=== PATIENT | male | born 1975 | race Hispanic/Latino ===

== ENCOUNTER 2021-12-27 13:52 | Emergency (ER) | payer SELFPAY ==
[2021-12-27] MEDS ORDERED: lisinopriL 10 MG TAB ONE (14:12)
[2021-12-27 14:39] LABS: Urine Blood Negative (Negative); Urine Glucose Trace (Negative); Urine Protein 1+ (Negative); Urine Specific Gravity >=1.030 (1.005-1.030)
[2021-12-27 14:46] LABS: Absolute Lymphocytes (CBC) 1.3 K/uL (0.7-4.9); Hematocrit 45.7 % (39.6-49.0); Lymphocytes % 20.4 % (15.3-44.8); MCV 86.3 fL (80-100); MPV 10.1 fL (7.6-11.3)
[2021-12-27 15:07] LABS: ALT/SGPT 23 U/L (12-78); AST/SGOT 8 U/L (15-37); Albumin 4.1 g/dL (3.4-5.0); Alkaline Phosphatase 52 U/L (45-117); BUN Blood Urea Nitrogen 15 mg/dL (7-18); Bicarbonate 24 mmol/L (21-32); Bilirubin Total 0.7 mg/dL (0.2-1.0); Glomerular Filtration Rate 92 ml/min (=/>90); Glucose Level 151 mg/dL (74-106); Potassium 3.9 mmol/L (3.5-5.1); Protein, Total 7.4 g/dL (6.4-8.2); Sodium Level 136 mmol/L (136-145)
[2021-12-27 15:16] LABS: Barbiturates NEGATIVE (NEGATIVE); Benzodiazepines NEGATIVE (NEGATIVE); Cocaine NEGATIVE (NEGATIVE); METHAMPHETAM NEGATIVE (NEGATIVE); Methadone NEGATIVE (NEGATIVE); Opiates NEGATIVE (NEGATIVE); Phencyclidine NEGATIVE (NEGATIVE); THC Cannibis POSITIVE (NEGATIVE)
--- NOTE | 2021-12-27 15:20 | RAD REPORT ---
EXAM DESCRIPTION: RAD - Chest Single View - 12/27/2021 3:09 pm CLINICAL HISTORY: med clearance COMPARISON: No comparisons FINDINGS: Lines: None. Lungs: No evidence of edema or pneumonia. No evidence of TB. Pleural: No significant pleural effusions or pneumothorax. Cardiac: The heart size is within normal limits. Mediastinum: Within normal limits. Bones: No acute fractures. Other: None IMPRESSION: No acute cardiopulmonary disease.
[2021-12-27 16:40] LABS: SARS-CoV-2 Antigen Rapid Res Negative (Negative)
--- NOTE | 2021-12-27 21:20 | EDPHYS ---
Physician Documentation [facility] Name: Elio Orozco Jr Age: 46 yrs Sex: Male : 1975 Arrival Date: 12/27/2021 Time: 13:56 Bed 7 Private MD: ED Physician Jabier Addison HPI: 12/27 14:50 This 46 yrs old Male presents to ER via EMS with complaints of Depression, rt substance abuse. 14:50 The patient presents to the emergency department with depression. Onset: The rt symptoms/episode began/occurred gradually. Associated signs and symptoms: The patient has no apparent associated signs or symptoms. Severity of symptoms: At their worst the symptoms were mild. Patient with history of hypertension, depression, diabetes presents to the ED after being out of his medications for several months. Patient [place] from [place]. The patient reports a history of substance abuse, drinking over a 12 pack of beer a day as well as smoking marijuana to help with his symptoms. Patient has not used any substances for the past few days. He reports depression but denies any overt suicidality. Denies homicidal ideation at this time or hallucinations. Patient states that he wishes to "get back on track" and wishes to go to psychiatric hospital as well as rehab. He denies any physical complaints at this time. Symptoms are mild in severity, no other aggravating or alleviating factors.. Historical: - Allergies: 14:00 No Known Allergies; kc6 - PMHx: 14:00 Hypertensive disorder; PTSD; Diabetes mellitus; Bipolar disorder; kc6 - PSHx: 14:00 None; kc6 - Immunization history:: Client reports receiving the 2nd dose of the Covid vaccine, Flu vaccine is not up to date. - Social history:: Smoking status: Patient reports the use of cigarette tobacco products, unknown amount Patient uses alcohol, on a daily basis. stated his last drink was Sunday12/24/21. ROS: 14:50 Constitutional: Negative for fever, chills, and weight loss, Eyes: Negative for injury, rt pain, redness, and discharge, ENT: Negative for injury, pain, and discharge, Neck: Negative for injury, pain, and swelling, Cardiovascular: Negative for chest pain, palpitations, and edema, Respiratory: Negative for shortness of breath, cough, wheezing, and pleuritic chest pain, Abdomen/GI: Negative for abdominal pain, nausea, vomiting, diarrhea, and constipation, MS/Extremity: Negative for injury and deformity, Skin: Negative for injury, rash, and discoloration, Neuro: Negative for headache, weakness, numbness, tingling, and seizure. 14:50 Psych: Positive for depression, Negative for suicidal ideation. Exam: 14:50 Constitutional: This is a well developed, well nourished patient who is awake, alert, rt and in no acute distress. Head/Face: Normocephalic, atraumatic. Eyes: Pupils equal round and reactive to light, extra-ocular motions intact. Lids and lashes normal. Conjunctiva and sclera are non-icteric and not injected. Cornea within normal limits. Periorbital areas with no swelling, redness, or edema. ENT: Nares patent. No nasal discharge, no septal abnormalities noted. Tympanic membranes are normal and external auditory canals are clear. Oropharynx with no redness, swelling, or masses, exudates, or evidence of obstruction, uvula midline. Mucous membranes moist. Neck: Trachea midline, no thyromegaly or masses palpated, and no cervical lymphadenopathy. Supple, full range of motion without nuchal rigidity, or vertebral point tenderness. No Meningismus. Chest/axilla: Normal chest wall appearance and motion. Nontender with no deformity. No lesions are appreciated. Cardiovascular: Regular rate and rhythm with a normal S1 and S2. No gallops, murmurs, or rubs. Normal PMI, no JVD. No pulse deficits. Respiratory: Lungs have equal breath sounds bilaterally, clear to auscultation and percussion. No rales, rhonchi or wheezes noted. No increased work of breathing, no retractions or nasal flaring. Abdomen/GI: Soft, non-tender, with normal bowel sounds. No distension or tympany. No guarding or rebound. No evidence of tenderness throughout. Skin: Warm, dry with normal turgor. Normal color with no rashes, no lesions, and no evidence of cellulitis. MS/ Extremity: Pulses equal, no cyanosis. Neurovascular intact. Full, normal range of motion. Neuro: Awake and alert, GCS 15, oriented to person, place, time, and situation. Cranial nerves II-XII grossly intact. Motor strength 5/5 in all extremities. Sensory grossly intact. Cerebellar exam normal. Normal gait. Psych: Awake, alert, with orientation to person, place and time. Behavior, mood, and affect are within normal limits. 14:50 ECG was reviewed by the Attending Physician. rt Vital Signs: 13:56 BP 150 / 108; Pulse 96; Resp 18 S; Pulse Ox 95% on R/A; Weight 95.25 kg (R); Height 5 kc6 ft. 11 in. (180.34 cm) (R); Pain 0/10; 14:46 BP 142 / 111; Pulse 95; Resp 18 S; Pulse Ox 95% on R/A; Pain 0/10; kc6 15:24 BP 140 / 106; Pulse 90; Resp 18 S; Pulse Ox 96% on R/A; Pain 0/10; kc6 16:15 BP 131 / 103; Pulse 87; Resp 18 S; Pulse Ox 97% on R/A; Pain 0/10; kc6 17:15 BP 137 / 103; Pulse 94; Resp 18 S; Pulse Ox 97% on R/A; Pain 0/10; kc6 18:15 BP 129 / 102; Pulse 96; Resp 17 S; Pulse Ox 94% on R/A; Pain 0/10; kc6 19:00 BP 134 / 98; Pulse 90; Resp 18 S; Pulse Ox 98% on R/A; Pain 0/10; kc6 20:12 BP 130 / 93; Pulse 94; Resp 17; Pulse Ox 96% on R/A; ll3 13:56 Body Mass Index 29.29 (95.25 kg, 180.34 cm) kc6 MDM: 14:00 Patient medically screened. rt 21:17 Differential diagnosis: drug withdrawal. acute psychotic break, depression, psychosis ginette secondary to non-compliance. Data reviewed: vital signs, nurses notes, lab test result(s), EKG. Data interpreted: quality assurance monitor chassis: rate is 94 beats/min, rhythm is regular. Test interpretation: by ED physician or midlevel provider: ECG, plain radiologic studies. Counseling: I had a detailed discussion with the patient and/or guardian regarding: the historical points, exam findings, and any diagnostic results supporting the discharge/admit diagnosis, lab results, radiology results. 12/27 14:08 Order name: CBC with Diff; Complete Time: 15: rt 12/27 14:08 Order name: CMP; Complete Time: : rt 12/27 14:08 Order name: Alcohol Level; Complete Time: 15:22 rt 12/27 14:08 Order name: Acetaminophen; Complete Time: 15:22 rt 12/27 14:08 Order name: Salicylate; Complete Time: 15:47 rt 12/27 14:08 Order name: UDS; Complete Time: 15:22 rt 12/27 14:08 Order name: Chest Single View XRAY; Complete Time: 15:22 rt 12/27 14:08 Order name: EKG; Complete Time: 14:09 rt 12/27 14:08 Order name: EKG - Nurse/Tech; Complete Time: 14:32 rt 12/27 14:39 Order name: Urine Dipstick-Ancillary; Complete Time: 15:22 EDMS 12/27 14:41 Order name: Urine Dipstick-Ancillary EDMS 12/27 16:02 Order name: SARS-COV-2 Antigen Rapid; Complete Time: 17:25 bd EC:50 Rate is 94 beats/min. Rhythm is regular, Normal Sinus Rhythm with No ectopy. QRS [place] rt is Normal. [place] interval is normal. QRS interval is normal. QT interval is normal. No Q waves. T waves are Normal. No ST changes noted. Clinical impression: Normal ECG. Interpreted by me. Administered Medications: 14:32 Drug: Lisinopril 10 mg Route: PO; kc6 15:32 Follow up: Response: No adverse reaction; Blood pressure is lowered kc6 Disposition Summary: 12/27/21 21:20 Discharge Ordered Location: Home ginette Problem: new ginette Symptoms: have improved ginette Condition: Stable ginette Diagnosis - Adjustment disorder with mixed anxiety and depressed mood ginette - Other psychoactive substance use, unspecified ginette Followup: ginette - With: Private Physician - When: 2 - 3 days - Reason: Recheck today's complaints, Continuance of care, Re-evaluation by your physician Followup: ginette - With: Adolfo Castrejon MD - When: 2 - 3 days - Reason: Recheck today's complaints, Re-evaluation by your physician Discharge Instructions: - Discharge Summary Sheet ginette - Substance Use Disorder ginette - Mixed Bipolar Disorder ginette - Supporting Someone With Bipolar Disorder ginette - Managing Depression, Adult ginette - Substance Use Disorder and Mental Illness ginette Forms: - Medication Reconciliation Form ginette - Thank You Letter ginette - Antibiotic Education ginette - Prescription Opioid Use ginette Signatures: Dispatcher [employer] Jabier Lauren MD MD cha Campbell, Kaitlyn, RN RN kc6 Javier Maradiaga MD MD rt
--- NOTE | 2021-12-27 21:20 | ER ---
Nurse's Notes [facility] Name: Elio Orozco Jr Age: 46 yrs Sex: Male : 1975 Arrival Date: 12/27/2021 Time: 13:56 Bed 7 Private MD: Diagnosis: Adjustment disorder with mixed anxiety and depressed mood;Other psychoactive substance use, unspecified Presentation: 12/27 13:56 Chief complaint: EMS states: client called because he was just not feeling in the right kc6 headspace, and is wanting to get some help. client stated he has been sober from ETOH for two days. client denies SI or HI, stated, "I'm depressed but happy at the same time.". Coronavirus screen: Vaccine status: Patient reports receiving the 2nd dose of the covid vaccine. At this time, the client does not indicate any symptoms associated with coronavirus-19. Ebola Screen: No symptoms or risks identified at this time. Initial Sepsis Screen: Does the patient meet any 2 criteria? No. Patient's initial sepsis screen is negative. Does the patient have a suspected source of infection? No. Patient's initial sepsis screen is negative. Risk Assessment: Do you want to hurt yourself or someone else? Patient reports no desire to harm self or others. Onset of symptoms was December 27, 2021. 13:56 Method Of Arrival: EMS: [place] [id number] 13:56 Acuity: CHAD 3 kc6 Triage Assessment: 13:56 General: Appears in no apparent distress. comfortable, Behavior is calm, cooperative, kc6 appropriate for age. Pain: Denies pain. EENT: No signs and/or symptoms were reported regarding the EENT system. Neuro: Bucio Agitation-Sedation Scale (RASS): 0 - Alert and Calm Level of Consciousness is awake, alert, obeys commands, Oriented to person, place, time, situation, Appropriate for age. Cardiovascular: Heart tones S1 S2 present Capillary refill < 3 seconds. Respiratory: Airway is patent Trachea midline Respiratory effort is even, unlabored, Respiratory pattern is regular, symmetrical, Breath sounds are clear bilaterally. GI: No signs and/or symptoms were reported involving the gastrointestinal system. : No signs and/or symptoms were reported regarding the genitourinary system. Derm: No signs and/or symptoms reported regarding the dermatologic system. Skin is intact, Skin is pink, warm \\T\\ dry. Musculoskeletal: No signs and/or symptoms reported regarding the musculoskeletal system. Circulation, motion, and sensation intact. Capillary refill < 3 seconds, Range of motion: intact in all extremities. Historical: - Allergies: 14:00 No Known Allergies; kc6 - PMHx: 14:00 Hypertensive disorder; PTSD; Diabetes mellitus; Bipolar disorder; kc6 - PSHx: 14:00 None; kc6 - Immunization history:: Client reports receiving the 2nd dose of the Covid vaccine, Flu vaccine is not up to date. - Social history:: Smoking status: Patient reports the use of cigarette tobacco products, unknown amount Patient uses alcohol, on a daily basis. stated his last drink was Sunday12/24/21. Screenin:08 Abuse screen: Denies threats or abuse. Denies injuries from another. Nutritional kc screening: No deficits noted. Tuberculosis screening: No symptoms or risk factors identified. Fall Risk No fall in past 12 months (0 pts). No secondary diagnosis (0 pts). No IV (0 pts). Ambulatory Aid- None/Bed Rest/Nurse Assist (0 pts). Gait- Normal/Bed Rest/Wheelchair (0 pts) Mental Status- Oriented to own ability (0 pts). Total Santacruz Fall Scale indicates No Risk (0-24 pts). Assessment: 14:09 Reassessment: please see triage assessment. kc6 15:09 Reassessment: Patient appears in no apparent distress at this time. No changes from kc6 previously documented assessment. Patient and/or family updated on plan of care and expected duration. Pain level reassessed. Patient is alert, oriented x 3, equal unlabored respirations, skin warm/dry/pink. Patient denies pain at this time. 16:09 Reassessment: Patient appears in no apparent distress at this time. No changes from kc6 previously documented assessment. Patient and/or family updated on plan of care and expected duration. Pain level reassessed. Patient is alert, oriented x 3, equal unlabored respirations, skin warm/dry/pink. Patient denies pain at this time. 17:17 Reassessment: Patient appears in no apparent distress at this time. No changes from kc6 previously documented assessment. Patient and/or family updated on plan of care and expected duration. Pain level reassessed. Patient is alert, oriented x 3, equal unlabored respirations, skin warm/dry/pink. [place] at bedside. Patient denies pain at this time. 18:17 Reassessment: Patient appears in no apparent distress at this time. No changes from 6 previously documented assessment. Patient and/or family updated on plan of care and expected duration. Pain level reassessed. Patient is alert, oriented x 3, equal unlabored respirations, skin warm/dry/pink. Patient denies pain at this time. 19:00 Reassessment: Patient appears in no apparent distress at this time. No changes from kc6 previously documented assessment. Patient and/or family updated on plan of care and expected duration. Pain level reassessed. Patient is alert, oriented x 3, equal unlabored respirations, skin warm/dry/pink. 20:23 Reassessment: Patient and/or family updated on plan of care and expected duration. Pain vc1 level reassessed. Patient is alert, oriented x 3, equal unlabored respirations, skin warm/dry/pink. 21:25 Reassessment: Pt refuses to sign discharge packet, states if he wanted resources he vc1 would just look them up. Vital Signs: 13:56 BP 150 / 108; Pulse 96; Resp 18 S; Pulse Ox 95% on R/A; Weight 95.25 kg (R); Height 5 kc6 ft. 11 in. (180.34 cm) (R); Pain 0/10; 14:46 BP 142 / 111; Pulse 95; Resp 18 S; Pulse Ox 95% on R/A; Pain 0/10; kc6 15:24 BP 140 / 106; Pulse 90; Resp 18 S; Pulse Ox 96% on R/A; Pain 0/10; kc6 16:15 BP 131 / 103; Pulse 87; Resp 18 S; Pulse Ox 97% on R/A; Pain 0/10; kc6 17:15 BP 137 / 103; Pulse 94; Resp 18 S; Pulse Ox 97% on R/A; Pain 0/10; kc6 18:15 BP 129 / 102; Pulse 96; Resp 17 S; Pulse Ox 94% on R/A; Pain 0/10; kc6 19:00 BP 134 / 98; Pulse 90; Resp 18 S; Pulse Ox 98% on R/A; Pain 0/10; kc6 20:12 BP 130 / 93; Pulse 94; Resp 17; Pulse Ox 96% on R/A; ll3 13:56 Body Mass Index 29.29 (95.25 kg, 180.34 cm) kc6 ED Course: 13:56 Patient arrived in ED. kc6 13:56 Rina Bernstein, RN is Primary Nurse. kc6 13:58 Javier Maradiaga MD is Attending Physician. rt 14:00 Triage completed. kc6 14:32 Acetaminophen Sent. kc6 14:32 Salicylate Sent. kc6 14:32 Alcohol Level Sent. kc6 14:32 CMP Sent. kc6 14:32 CBC with Diff Sent. kc6 14:32 Inserted saline lock: 20 gauge in right antecubital area, using aseptic technique. kc6 Blood collected. 14:40 UDS Sent. kc6 15:10 Chest Single View XRAY In Process Unspecified. EDMS 15:23 Patient has correct armband on for positive identification. Placed in gown. Bed in low kc6 position. Call light in reach. Side rails up X 1. Door closed. Noise minimized. Lights dimmed. Warm blanket given. Pillow given. 15:25 No provider procedures requiring assistance completed. kc6 15:25 Arm band placed on. kc6 15:47 Urine Dipstick-Ancillary Sent. kc6 16:12 notifited [facility] to send screener to evaluate pt. bd 16:15 SARS-COV-2 Antigen Rapid Sent. kc6 17:52 faxed chart to [facility], [facility] and [facility]. 21:11 Attending Physician role handed off by Javier Maradiaga MD ginette 21:11 Jabier Addison MD is Attending Physician. ginette 21:19 Adolfo Castrejon MD is Referral Physician. ginette 21:26 IV discontinued, intact, bleeding controlled, No redness/swelling at site. Pressure vc1 dressing applied. Administered Medications: 14:32 Drug: Lisinopril 10 mg Route: PO; kc6 15:32 Follow up: Response: No adverse reaction; Blood pressure is lowered kc6 Medication: 15:25 VIS not applicable for this client. kc6 Outcome: 21:20 Discharge ordered by . ginette 21:26 Discharged to home ambulatory. vc1 21:26 Condition: good 21:26 Discharge instructions given to patient, Instructed on discharge instructions, follow up and referral plans. Demonstrated understanding of instructions, follow-up care. 21:27 Patient left the ED. vc1 Signatures: Dispatcher [employer] EDMS Abbey Hewitt Corey, MD MD cha Loubet, Lynsea, RN RN ll3 Ofe Oakes RN RN vc1 Rina Bernstein RN RN kc6 Javier Maradiaga MD MD rt Corrections: (The following items were deleted from the chart) 14:13 13:56 Acuity: CHAD 2 kc6 kc6 14:46 14:44 General: Appears in no apparent distress. comfortable, Behavior is calm, kc6 cooperative, appropriate for age, kc6 :46 14:44 Pain: Denies pain. kc6 kc6 14:46 14:44 EENT: No signs and/or symptoms were reported regarding the EENT system. kc6 kc6 14:46 14:44 Neuro: Bucio Agitation-Sedation Scale (RASS): 0 - Alert and Calm Level of kc6 Consciousness is awake, alert, obeys commands, Oriented to person, place, time, situation, Appropriate for age kc6 14:46 14:44 Cardiovascular: Heart tones S1 S2 present Capillary refill < 3 seconds kc6 kc6 14:46 14:44 Respiratory: Airway is patent Trachea midline Respiratory effort is even, kc6 unlabored, Respiratory pattern is regular, symmetrical, Breath sounds are clear bilaterally. kc6 14:46 14:44 GI: No signs and/or symptoms were reported involving the gastrointestinal system. kc6 kc6 14:46 14:44 : No signs and/or symptoms were reported regarding the genitourinary system. kc6kc6 14:46 14:44 Derm: No signs and/or symptoms reported regarding the dermatologic system. Skin kc6 is intact, Skin is pink, warm \\T\\ dry. kc6 14:46 14:44 Musculoskeletal: No signs and/or symptoms reported regarding the musculoskeletal kc6 system. Circulation, motion, and sensation intact. Capillary refill < 3 seconds, Range of motion: intact in all extremities, kc6 14:46 14:44 Neuro: kc6 kc6
[2021-12-27 21:41] VITALS: BP 130/93; O2SAT 96
--- NOTE | 2021-12-28 11:36 | EKG ---
Test Date: 2021-12-27 Test Time: 14:21:54 Plug Stitcher: SATISH MEASUREMENT RESULTS: Intervals: Rate: 94 [place]: 134 QRSD: 78 QT: 340 QTc: 425 [place]: P: 62 [place]: 134 QRS: 67 T: 125 INTERPRETIVE STATEMENTS: Normal sinus rhythm Nonspecific T wave abnormality Abnormal ECG No previous ECG available for comparison Electronically Signed On 12-28-21 11:34:37 EVENT SPECIALIST PRODUCT DEMONSTRATOR by Wyatt Powers
== END 2021-12-27 21:27 | disposition home or self-care (01) ==
LOC: ER 13:52
DX: F43.23 Adjustment disorder with mixed anxiety and depressed mood (principal); F19.90 Other psychoactive substance use, unspecified, uncomplicated
CPT/HCPCS: 36415; 71045; 80053; 80307; 80320; 80329; 81003; 85025; 87811; 93005; 99284

== ENCOUNTER 2021-12-28 05:23 | Emergency (ER) | payer SELFPAY ==
--- NOTE | 2021-12-28 06:17 | EDPHYS ---
Physician Documentation [facility] Name: Elio Orozco Jr Age: 46 yrs Sex: Male : 1975 Arrival Date: 12/28/2021 Time: 05:25 Bed 17 Private MD: ED Physician Isaias Medrano HPI: 12/28 06:08 This 46 yrs old Male presents to ER via Unassigned with complaints of Suicidal ginette Ideation. 06:08 The patient presents to the emergency department with anxiety, depression, a history of ginette substance abuse, Type: beer, methamphetamines, suicide ideation. Onset: The symptoms/episode began/occurred 2 week(s) ago. Past psychiatric history: Prior diagnosis: bipolar disorder, depression, the patient has had a prior suicide gesture, where the patient took pills/meds, the patient does not have a previous inpatient psychiatric history. Associated signs and symptoms: Pertinent positives; anxiety, depression, substance abuse, suicide ideation. Severity of symptoms: At their worst the symptoms were moderate in the emergency department the symptoms are unchanged. The patient has experienced similar episodes in the past, several times. Historical: - Allergies: 08:57 No Known Allergies; jd3 - PMHx: 06:10 Bipolar disorder; PTSD; Hypertensive disorder; ginette - Immunization history:: Adult Immunizations not up to date. - Social history:: Smoking status: Patient reports the use of cigarette tobacco products. - Family history:: not pertinent. - Hospitalizations: : No recent hospitalization is reported. ROS: 06:10 Constitutional: Negative for fever, chills, and weight loss, Eyes: Negative for injury, ginette pain, redness, and discharge, ENT: Negative for injury, pain, and discharge, Neck: Negative for injury, pain, and swelling, Cardiovascular: Negative for chest pain, palpitations, and edema, Respiratory: Negative for shortness of breath, cough, wheezing, and pleuritic chest pain, Abdomen/GI: Negative for abdominal pain, nausea, vomiting, diarrhea, and constipation, Back: Negative for injury and pain, : Negative for injury, bleeding, discharge, and swelling, MS/Extremity: Negative for injury and deformity, Skin: Negative for injury, rash, and discoloration, Neuro: Negative for headache, weakness, numbness, tingling, and seizure, Allergy/Immunology: Negative for hives, rash, and allergies, Endocrine: Negative for neck swelling, polydipsia, polyuria, polyphagia, and marked weight changes, Hematologic/Lymphatic: Negative for swollen nodes, abnormal bleeding, and unusual bruising. 06:10 Psych: Positive for anxiety, depression, suicidal ideation. Exam: 06:10 Constitutional: This is a well developed, well nourished patient who is awake, alert, ginette and in no acute distress. Head/Face: Normocephalic, atraumatic. Eyes: Pupils equal round and reactive to light, extra-ocular motions intact. Lids and lashes normal. Conjunctiva and sclera are non-icteric and not injected. Cornea within normal limits. Periorbital areas with no swelling, redness, or edema. ENT: Nares patent. No nasal discharge, no septal abnormalities noted. Tympanic membranes are normal and external auditory canals are clear. Oropharynx with no redness, swelling, or masses, exudates, or evidence of obstruction, uvula midline. Mucous membranes moist. Neck: Trachea midline, no thyromegaly or masses palpated, and no cervical lymphadenopathy. Supple, full range of motion without nuchal rigidity, or vertebral point tenderness. No Meningismus. Chest/axilla: Normal chest wall appearance and motion. Nontender with no deformity. No lesions are appreciated. Cardiovascular: Regular rate and rhythm with a normal S1 and S2. No gallops, murmurs, or rubs. Normal PMI, no JVD. No pulse deficits. Respiratory: Lungs have equal breath sounds bilaterally, clear to auscultation and percussion. No rales, rhonchi or wheezes noted. No increased work of breathing, no retractions or nasal flaring. Abdomen/GI: Soft, non-tender, with normal bowel sounds. No distension or tympany. No guarding or rebound. No evidence of tenderness throughout. Back: No spinal tenderness. No costovertebral tenderness. Full range of motion. Male : Normal genitalia with no discharge or lesions. Skin: Warm, dry with normal turgor. Normal color with no rashes, no lesions, and no evidence of cellulitis. MS/ Extremity: Pulses equal, no cyanosis. Neurovascular intact. Full, normal range of motion. Psych: Awake, alert, with orientation to person, place and time. Behavior, mood, and affect are within normal limits. 06:10 ECG was reviewed by the Attending Physician. 06:10 Neuro: Orientation: is normal, appropriate for stated age, no acute changes, Mentation: is normal, appropriate for stated age, no acute changes, Memory: is normal, appropriate for stated age, no acute changes, Cranial nerves: grossly normal, is grossly normal based on the patient's age, no acute changes, Cerebellar function: is grossly normal, is grossly normal based on the patient's age, no acute changes, Motor: is normal, is grossly normal based on the patient's age, Sensation: is normal, no obvious gross deficits, appropriate no acute changes, Gait: not applicable Deep tendon reflexes are 2+ (normal) in the bilateral brachioradialis, bicep, tricep and patellar and Achilles tendons, Babinski testing is normal, seizure activity, is not displayed by the patient. Vital Signs: 06:40 BP 109 / 92; Pulse 98; Resp 19; Temp 98(O); Pulse Ox 98% on R/A; kd3 12/29 05:43 BP 117 / 82; Pulse 89; Resp 15; Temp 98.1(O); Pulse Ox 100% on R/A; Pain 0/10; ke1 08:23 BP 135 / 97; Pulse 84; Resp 16; Temp 98.2; Pulse Ox 95% on R/A; Pain 0/10; ll1 20:16 BP 127 / 89; Pulse 84; Resp 18; Temp 98.4; Pulse Ox 99% on R/A; as6 12/30 08:00 BP 122 / 78; Pulse 82; Resp 16; Temp 97.4(O); Pulse Ox 99% on R/A; Pain 0/10; ko1 12:32 BP 151 / 98; Pulse 90; Resp 18; Pulse Ox 94% on R/A; ko1 12/31 05:07 BP 142 / 99; Pulse 65; Resp 16 S; Temp 97.9(O); Pulse Ox 99% on R/A; ha1 08:00 BP 131 / 91; Pulse 86; Resp 16; Temp 98; Pulse Ox 99% ; bp 19:20 BP 138 / 94; Pulse 80; Resp 16 S; Temp 97.9; Pulse Ox 99% on R/A; Pain 0/10; ha1 01/01 06:49 BP 129 / 92; Pulse 84; Resp 16; Temp 98.3; Pulse Ox 98% ; ds4 12:09 BP 125 / 78; Pulse 87; Resp 16; Pulse Ox 99% ; bp 01/02 05:17 BP 137 / 97; Pulse 83; Resp 17; Temp 98.5; Pulse Ox 98% on R/A; vc1 MDM: 12/28 05:28 Patient medically screened. ginette 06:13 Differential diagnosis: drug withdrawal. acute psychotic break, depression, psychosis ginette secondary to non-compliance. Data reviewed: vital signs, nurses notes, lab test result(s), EKG. Data interpreted: bark press operator: rate is 91 beats/min, rhythm is regular, Pulse oximetry: on room air is 100 %. Test interpretation: by ED physician or midlevel provider: ECG, plain radiologic studies. Counseling: I had a detailed discussion with the patient and/or guardian regarding: the historical points, exam findings, and any diagnostic results supporting the discharge/admit diagnosis, lab results, radiology results, the need to transfer to another facility, for higher level of care, [facility] does not immediately have the required specialist. 12/29 06:34 ED course: Pt has been sleeping comfortably, not requiring sedation, awaiting transfer rn for suicidal ideations. . 17:09 ED course: Patient alert, cooperative, in NAD at this time. Patient currently is ms3 pending transfer. Patient updated on his transfer status.. 12/31 12:00 ED course: Patient remains in stable condition without complaints. Patient is ms3 cooperative, polite. Patient aware of pending transfer. All questions were answered. Zyprexa ordered this AM. Will continue to attempt to transfer. . 01/01 11:44 ED course: Patient improved at this time. Patient states the Zyprexa has helped him. ms3 Patient does not have suicidal ideations/ plan at this time. Patient is concerned he will be discharged to the streets. Will consult case management to help facilitate discharge. Patient states he will also call people from his AA program to possibly find a place to stay.. 01/02 07:14 ED course: On evaluation of patient this morning patient remains without suicidal ms3 ideation, without suicidal intent, without homicidal ideation or intent, or hallucinations. Patient states he feels improved at this time. Patient has plans to go to his family in [place]. Discussed necessity to fill Zyprexa prescription with patient patient understands and agrees with plan. All questions were answered. Return precautions discussed include worsening symptoms, feelings of worthlessness, suicidal ideation, or any other concerns. 12/28 05:28 Order name: Acetaminophen; Complete Time: 06:32 [facility] 12/28 05:28 Order name: Basic Metabolic Panel; Complete Time: 06:32 [facility] 12/28 05:28 Order name: CBC with Diff; Complete Time: 06:59 [facility] 12/28 05:28 Order name: ETOH Level; Complete Time: 06:59 [facility] 12/28 05:28 Order name: Hepatic Function; Complete Time: 06:32 [facility] 12/28 05:28 Order name: PT-INR; Complete Time: 06:59 [facility] 12/28 05:28 Order name: Ptt, Activated; Complete Time: 06:59 [facility] 12/28 05:28 Order name: Salicylate; Complete Time: 06:32 [facility] 12/28 05:28 Order name: Urine Drug Screen; Complete Time: 06:32 [facility] 12/28 06:53 Order name: Urine Dipstick-Ancillary; Complete Time: 06:59 [facility] 12/29 17:13 Order name: SARS RAPID; Complete Time: 09:33 ms3 12/28 05:28 Order name: EKG; Complete Time: 05:29 [facility] 12/28 07:07 Order name: Diet Finger Food; Complete Time: 07:08 [facility] 12/28 10:56 Order name: Diet Finger Food; Complete Time: 10:56 [facility] 12/28 14:47 Order name: Diet Finger Food; Complete Time: 14:48 [facility] 12/29 07:20 Order name: Diet Finger Food; Complete Time: 07:21 kj1 12/30 10:18 Order name: Diet Finger Food; Complete Time: 10:19 ko1 12/31 07:10 Order name: Diet Finger Food; Complete Time: 07:10 ha1 12/31 10:56 Order name: Diet Finger Food; Complete Time: 10:57 bp 12/31 15:11 Order name: Diet Finger Food; Complete Time: 15:11 01/01 07:03 Order name: Diet Finger Food; Complete Time: 07:04 ha1 01/01 10:16 Order name: Diet Finger Food; Complete Time: 10:16 01/01 11:49 Order name: Social Service Consult EDMS 01/01 14:16 Order name: Diet Regular; Complete Time: 14:17 bp 12/28 05:28 Order name: EKG - Nurse/Tech; Complete Time: 06:25 [facility] 12/28 05:28 Order name: IV Saline Lock; Complete Time: 06:40 [facility] 12/28 05:28 Order name: Labs collected and sent; Complete Time: 06:40 [facility] 12/28 05:28 Order name: Suicide Precautions; Complete Time: 06:40 [facility] 12/28 05:28 Order name: Suicide Screening ([place]); Complete Time: 06:41 [facility] 12/28 05:28 Order name: Urine Dipstick-Ancillary (obtain specimen); Complete Time: 07:02 [facility] 01/02 07:08 Order name: Diet Finger Food; Complete Time: 07:08 ds4 EC/23 06:10 Rate is 91 beats/min. Rhythm is regular. QRS [place] is Normal. [place] interval is normal. QRS ginette interval is normal. QT interval is normal. T waves are Normal. No ST changes noted. Clinical impression: NSR w/ Non-specific ST/T Changes and No evidence of ischemia. Interpreted by me. Reviewed by me. Administered Medications: 07:01 Drug: NS 0.9% 1000 ml Route: IV; Rate: 1 bolus; Site: left hand; kd3 08:01 Follow up: Response: No adverse reaction; IV Status: Completed infusion; IV Intake: kc6 1000ml 07:01 Drug: Ativan (LORazepam) 1 mg Route: IVP; Site: left hand; kd3 07:23 Follow up: Response: No adverse reaction; Anxiety decreased kd3 12/29 18:50 Drug: ZyPREXA (OLANZapine) 5 mg Route: PO; kr3 20:17 Follow up: Response: No adverse reaction as6 12/31 10:00 Drug: ZyPREXA (OLANZapine) 5 mg Route: PO; bp 10:56 Follow up: Response: No adverse reaction bp 01/01 10:15 Drug: ZyPREXA (OLANZapine) 5 mg Route: PO; bp 12:09 Follow up: Response: No adverse reaction bp 01/02 08:20 Drug: ZyPREXA (OLANZapine) 5 mg Route: PO; vg1 08:20 Follow up: Response: Medication administered at discharge. vg1 Disposition Summary: 01/02/22 07:12 Discharge Ordered Location: Home ms3 Condition: Stable(01/02/22 07:12) ms3 Diagnosis - Abuse of other non-psychoactive substances(01/02/22 07:12) ms3 - Major depressive disorder, single episode, unspecified ms3 - Post-traumatic stress disorder (PTSD)(01/02/22 07:12) ms3 - Suicidal ideations(01/02/22 07:12) ms3 Followup: ms3 - With: Adolfo Castrejon MD - When: 2 - 3 days - Reason: Recheck today's complaints Discharge Instructions: - Discharge Summary Sheet ms3 - Finding Treatment for Addiction ms3 - Substance Use Disorder ms3 - Suicidal Feelings: How to Help Yourself ms3 - Major Depressive Disorder, Adult, [id number] ms3 Forms: - Medication Reconciliation Form ms3 - Thank You Letter ms3 - Antibiotic Education ms3 - Prescription Opioid Use ms3 Prescriptions: - olanzapine 5 mg Oral tablet - take 1 tablet by ORAL route once daily; 30 tablet; Refills: 0, Product ms3 Selection Permitted Signatures: Dispatcher [employer] EDMS Jabier Addison MD MD cha Nieto, Roman, MD MD rn Davies, Jonathon RN RN Tr Kelly RN RN Vy Glaser RN RN [email or web address] Isaias Medrano DO DO ms3 Lakeshia Pop RN RN kd3 Senia Dyer RN RN [email or web address] Derek Jiménez RN as6 Rina Bernstein RN kc6 Corrections: (The following items were deleted from the chart) 12/28 06:10 06:10 PMHx: diabetes mellitus; [facility] ginette 07:13 06:30 Immunization history: Adult Immunizations up to date, kd3 kd3 01/02 07:11 12/28 06:17 to psych ginette ms3 01/02 07:11 12/28 06:17 Psych Facility ginette ms3 01/02 07:11 12/28 06:17 Higher level of care ginette ms3 01/02 07:11 12/28 06:17 Stable ginette ms3 01/02 07:11 12/28 06:17 new ginette ms3 01/02 07:11 12/28 06:17 are unchanged ginette ms3 01/02 07:11 12/28 06:17 Abuse of other non-psychoactive substances [place] [id number] 01/02 07:11 12/28 06:17 Major depressive disorder, recurrent, moderate [place] [id number] 01/02 07:11 12/28 06:17 Post-traumatic stress disorder (PTSD) [place] [id number] 01/02 07:11 12/28 06:17 Suicidal ideations [place] [id number]
[2021-12-28 06:35] LABS: Absolute Lymphocytes (CBC) 2.3 K/uL (0.7-4.9); Hematocrit 48.2 % (39.6-49.0); Lymphocytes % 37.3 % (15.3-44.8); MCV 86.4 fL (80-100); MPV 9.8 fL (7.6-11.3); RBC Red Blood Cell Count 5.57 M/uL (4.33-5.43)
[2021-12-28 06:40] LABS: Protime INR 0.96
[2021-12-28] MEDS ORDERED: NA CHLORIDE 0.9% 1,000 ML ONE (06:43)
[2021-12-28] MEDS ORDERED: LORazepam 2 MG/ML VIAL ONE (06:43)
[2021-12-28 06:53] LABS: Urine Blood Negative (Negative); Urine Glucose Negative (Negative); Urine Protein Negative (Negative); Urine Specific Gravity 1.025 (1.005-1.030); Urine pH 5.5 (5.0-7.0)
[2021-12-28 07:12] LABS: ALT/SGPT 26 U/L (12-78); AST/SGOT 11 U/L (15-37); Albumin 4.1 g/dL (3.4-5.0); Alkaline Phosphatase 56 U/L (45-117); BUN Blood Urea Nitrogen 14 mg/dL (7-18); Bicarbonate 23 mmol/L (21-32); Bilirubin Direct 0.2 mg/dL (0-0.2); Bilirubin Total 0.7 mg/dL (0.2-1.0); Glomerular Filtration Rate 94 ml/min (=/>90); Glucose Level 137 mg/dL (74-106); Potassium 3.8 mmol/L (3.5-5.1); Protein, Total 7.6 g/dL (6.4-8.2); Sodium Level 137 mmol/L (136-145)
[2021-12-28 07:13] LABS: Barbiturates NEGATIVE (NEGATIVE); Benzodiazepines NEGATIVE (NEGATIVE); Cocaine NEGATIVE (NEGATIVE); METHAMPHETAM NEGATIVE (NEGATIVE); Methadone NEGATIVE (NEGATIVE); Opiates NEGATIVE (NEGATIVE); Phencyclidine NEGATIVE (NEGATIVE); THC Cannibis POSITIVE (NEGATIVE)
[2021-12-29 17:42] LABS: SARS-CoV-2 Antigen Rapid Res Negative (Negative)
[2021-12-29] MEDS ORDERED: OLANZapine 2.5 MG TAB ONE (18:36)
--- NOTE | 2021-12-30 16:36 | EKG ---
Test Date: 2021-12-28 Test Time: 06:05:11 Tax Services Manager: SHARON MEASUREMENT RESULTS: Intervals: Rate: 91 MN: 120 QRSD: 90 QT: 352 QTc: 432 [place]: P: 68 MN: 120 QRS: 33 T: 66 INTERPRETIVE STATEMENTS: Normal sinus rhythm with sinus arrhythmia Nonspecific T wave abnormality Abnormal ECG Compared to ECG 12/27/2021 14:21:54 No significant changes Electronically Signed On 12-30-21 16:34:18 TAGMAN by Ruben Gonzáles
[2021-12-31] MEDS ORDERED: OLANZapine 2.5 MG TAB PO ONE (10:00)
[2022-01-01] MEDS ORDERED: OLANZapine 2.5 MG TAB PO ONE (11:00)
--- NOTE | 2022-01-02 07:13 | ER ---
Nurse's Notes [facility] Name: Elio Orozco Jr Age: 46 yrs Sex: Male : 1975 Arrival Date: 12/28/2021 Time: 05:25 Bed 17 Private MD: Diagnosis: Abuse of other non-psychoactive substances;Major depressive disorder, single episode, unspecified;Post-traumatic stress disorder (PTSD);Suicidal ideations Presentation: 12/28 06:30 Chief complaint: Patient states: I just cannot go on anymore. I am having suicidal kd3 thoughts and I just feel so helpless. I really want to go to a facility to get some help. 06:30 Coronavirus screen: Vaccine status: unknown. Ebola Screen: No symptoms or risks kd3 identified at this time. Initial Sepsis Screen: Does the patient meet any 2 criteria? No. Patient's initial sepsis screen is negative. Does the patient have a suspected source of infection? No. Patient's initial sepsis screen is negative. Risk Assessment: Do you want to hurt yourself or someone else? Patient reports desire/thoughts of hurting themselves or someone else. Provider notified. Onset of symptoms was December 28, 2021. 06:30 Method Of Arrival: Ambulatory kd3 06:30 Acuity: CHAD 3 kd3 12/29 19:06 Acuity: CHAD 2 as6 Triage Assessment: 12/28 06:30 General: Appears in no apparent distress. Behavior is cooperative, anxious, crying. kd3 Pain: Denies pain. EENT: No signs and/or symptoms were reported regarding the EENT system. Neuro: Level of Consciousness is awake, alert, obeys commands, Oriented to person, place, time, situation. Cardiovascular: Patient's skin is warm and dry. Respiratory: Airway is patent Trachea midline Respiratory effort is even, unlabored, Respiratory pattern is regular, symmetrical. GI: No signs and/or symptoms were reported involving the gastrointestinal system. : No signs and/or symptoms were reported regarding the genitourinary system. Derm: No signs and/or symptoms reported regarding the dermatologic system. Historical: - Allergies: 08:57 No Known Allergies; jd3 - PMHx: 06:10 Bipolar disorder; PTSD; Hypertensive disorder; ginette - Immunization history:: Adult Immunizations not up to date. - Social history:: Smoking status: Patient reports the use of cigarette tobacco products. - Family history:: not pertinent. - Hospitalizations: : No recent hospitalization is reported. Screenin:45 Abuse screen: Denies threats or abuse. Denies injuries from another. kd3 06:45 Nutritional screening: No deficits noted. Tuberculosis screening: No symptoms or risk kd3 factors identified. Fall Risk None identified. IV access (20 points). Assessment: 06:35 General: room cleared of all unnecessary items, including but not limited to cords, kd3 medical equipment, and items in drawers. patient placing in gown. personal items documented and sent with security. [place] screening done. Patient is high risk for suicide. proper precautions in place. no sitter available at this time, . 07:08 General: Appears in no apparent distress. comfortable, Behavior is calm, cooperative, jd3 appropriate for age, pt resting in bed. no distress noted at this time. denies pain. continues to report wanting to hurt self. continued SI care at this time. Pain: Denies pain. Neuro: [place]io Agitation-Sedation Scale (RASS): 0 - Alert and Calm Level of Consciousness is awake, alert, obeys commands, Oriented to person, place, time, situation. Cardiovascular: Denies chest pain, Capillary refill < 3 seconds Patient's skin is warm and dry. Respiratory: Airway is patent Respiratory effort is even, unlabored, Respiratory pattern is regular, symmetrical, Denies cough, shortness of breath. GI: No signs and/or symptoms were reported involving the gastrointestinal system. : No signs and/or symptoms were reported regarding the genitourinary system. EENT: No signs and/or symptoms were reported regarding the EENT system. Derm: Skin is intact, Skin is dry, Skin is normal, Skin temperature is warm. Musculoskeletal: Circulation, motion, and sensation intact. Range of motion: intact in all extremities. 08:00 Reassessment: Patient appears in no apparent distress at this time. No changes from jd3 previously documented assessment. Patient and/or family updated on plan of care and expected duration. Pain level reassessed. Patient is alert, oriented x 3, equal unlabored respirations, skin warm/dry/pink. 09:00 Reassessment: Patient appears in no apparent distress at this time. No changes from jd3 previously documented assessment. Patient and/or family updated on plan of care and expected duration. Pain level reassessed. Patient is alert, oriented x 3, equal unlabored respirations, skin warm/dry/pink. 10:00 Reassessment: Patient appears in no apparent distress at this time. No changes from jd3 previously documented assessment. Patient and/or family updated on plan of care and expected duration. Pain level reassessed. Patient is alert, oriented x 3, equal unlabored respirations, skin warm/dry/pink. 11:00 Reassessment: Patient appears in no apparent distress at this time. No changes from jd3 previously documented assessment. Patient and/or family updated on plan of care and expected duration. Pain level reassessed. Patient is alert, oriented x 3, equal unlabored respirations, skin warm/dry/pink. 12:00 Reassessment: Patient appears in no apparent distress at this time. Patient and/or jd3 family updated on plan of care and expected duration. Pain level reassessed. Patient is alert, oriented x 3, equal unlabored respirations, skin warm/dry/pink. sitting up in bed eating meal. 12:30 Reassessment: toothbrush and deodorant offered. pt used toothbrush and deodorant and jd3 then placed with sitter. 13:00 Reassessment: Patient appears in no apparent distress at this time. Patient and/or jd3 family updated on plan of care and expected duration. Pain level reassessed. Patient is alert, oriented x 3, equal unlabored respirations, skin warm/dry/pink. sitting up in bed watching TV. 14:00 Reassessment: Patient appears in no apparent distress at this time. Patient and/or jd3 family updated on plan of care and expected duration. Pain level reassessed. Patient is alert, oriented x 3, equal unlabored respirations, skin warm/dry/pink. resting in bed with eyes closed, in view of nurse/sitter. 15:00 Reassessment: Patient appears in no apparent distress at this time. No changes from jd3 previously documented assessment. Patient and/or family updated on plan of care and expected duration. Pain level reassessed. Patient is alert, oriented x 3, equal unlabored respirations, skin warm/dry/pink. 16:00 Reassessment: Patient appears in no apparent distress at this time. Patient and/or jd3 family updated on plan of care and expected duration. Pain level reassessed. Patient is alert, oriented x 3, equal unlabored respirations, skin warm/dry/pink. sitting up, watching TV. 17:00 Reassessment: Patient appears in no apparent distress at this time. No changes from jd3 previously documented assessment. Patient and/or family updated on plan of care and expected duration. Pain level reassessed. Patient is alert, oriented x 3, equal unlabored respirations, skin warm/dry/pink. eating dinner. 18:00 Reassessment: Patient appears in no apparent distress at this time. No changes from jd3 previously documented assessment. Patient and/or family updated on plan of care and expected duration. Pain level reassessed. Patient is alert, oriented x 3, equal unlabored respirations, skin warm/dry/pink. 19:00 Reassessment: Patient appears in no apparent distress at this time. Patient and/or jd3 family updated on plan of care and expected duration. Pain level reassessed. Patient is alert, oriented x 3, equal unlabored respirations, skin warm/dry/pink. sitting up in bed watching TV. 12/29 07:00 Reassessment: No changes from previously documented assessment. Report received from ll1 film processing shift supervisor RN. 08:00 Reassessment: No changes from previously documented assessment. See safety director 1 observation form for 15 min checks. 10:00 Reassessment: No changes from previously documented assessment. Patient and/or family as6 updated on plan of care and expected duration. Pain level reassessed. Patient is alert, oriented x 3, equal unlabored respirations, skin warm/dry/pink. 12:00 Reassessment: No changes from previously documented assessment. Patient and/or family as6 updated on plan of care and expected duration. Pain level reassessed. 14:00 Reassessment: No changes from previously documented assessment. Patient and/or family as6 updated on plan of care and expected duration. Pain level reassessed. 16:00 Reassessment: No changes from previously documented assessment. Patient and/or family as6 updated on plan of care and expected duration. Pain level reassessed. 17:16 Reassessment: Spiritism declined due to capacity. ss 18:00 Reassessment: No changes from previously documented assessment. Patient and/or family as6 updated on plan of care and expected duration. Pain level reassessed. 20:00 Reassessment: No changes from previously documented assessment. Patient and/or family as6 updated on plan of care and expected duration. Pain level reassessed. 22:00 Reassessment: Patient appears in no apparent distress at this time. Patient and/or as6 family updated on plan of care and expected duration. Pain level reassessed. Patient is alert, oriented x 3, equal unlabored respirations, skin warm/dry/pink. sitter at bedside. 12/30 00:00 Reassessment: Patient appears in no apparent distress at this time. Patient and/or as6 family updated on plan of care and expected duration. Pain level reassessed. Patient is alert, oriented x 3, equal unlabored respirations, skin warm/dry/pink. 02:00 Reassessment: Patient appears in no apparent distress at this time. Patient and/or as6 family updated on plan of care and expected duration. Pain level reassessed. Patient is alert, oriented x 3, equal unlabored respirations, skin warm/dry/pink. 04:00 Reassessment: Patient appears in no apparent distress at this time. Patient and/or as6 family updated on plan of care and expected duration. Pain level reassessed. Patient is alert, oriented x 3, equal unlabored respirations, skin warm/dry/pink. 06:00 Reassessment: Patient appears in no apparent distress at this time. Patient is alert, as6 oriented x 3, equal unlabored respirations, skin warm/dry/pink. 07:01 General: pt ambulated to bathroom. personal hygiene offered and accepted . as6 08:00 Reassessment: No changes from previously documented assessment. Patient denies pain at ko1 this time. 10:00 Reassessment: No changes from previously documented assessment. ko1 12:00 Reassessment: No changes from previously documented assessment. ko1 19:10 General: Appears comfortable, Behavior is calm, cooperative. ha1 19:10 General: room clear of all objects ( cords, medical equipment). pt. reported thinking ha1 about killing himself. notified care provider. Pain: Denies pain. Neuro: Level of Consciousness is awake, alert, obeys commands, Oriented to person, place, time, situation. Neuro:. Cardiovascular: Capillary refill < 3 seconds Patient's skin is warm and dry. Respiratory: Airway is patent Trachea midline Respiratory effort is even, unlabored, Respiratory pattern is regular, symmetrical. GI: No signs and/or symptoms were reported involving the gastrointestinal system. Abdomen is flat, non-distended. : No signs and/or symptoms were reported regarding the genitourinary system. Derm: Skin is intact, Skin is dry, Skin is normal. Musculoskeletal: Circulation, motion, and sensation intact. Range of motion: intact in all extremities. 20:10 Reassessment: Patient and/or family updated on plan of care and expected duration. Pain ha1 level reassessed. Patient is alert, oriented x 3, equal unlabored respirations, skin warm/dry/pink. Patient denies pain at this time. 21:00 Reassessment: Patient is alert, oriented x 3, equal unlabored respirations, skin ha1 warm/dry/pink. 22:00 Reassessment: eyes colsed. Respiratory: Respiratory effort is even, unlabored, ha1 Respiratory pattern is regular, symmetrical. 23:00 Reassessment: eyes closed. Respiratory: Respiratory effort is even, unlabored, ha1 Respiratory pattern is regular, symmetrical. 12/31 00:15 Reassessment: Reassessment: Patient and/or family updated on plan of care and expected ha1 duration. Pain level reassessed. Patient denies pain at this time. 02:00 Reassessment: eyes closed. Respiratory: Airway is patent Respiratory effort is even, ha1 unlabored, Respiratory pattern is regular, symmetrical. 03:08 Reassessment:. Reassessment: eyes closed. General:. Respiratory: Airway is patent ha1 Respiratory effort is even, unlabored, Respiratory pattern is regular, symmetrical. 04:04 Reassessment: eyes closed. Respiratory: Airway is patent Trachea midline Respiratory ha1 effort is even, unlabored, Respiratory pattern is regular, symmetrical. 05:22 Reassessment:. ha1 07:00 Reassessment: RECD REPORT FROM SWETHA NAIR. 46YO HM P/W SI, RECURRENT PROBLEM. [facility] bp RECOMMENDS INPATIENT, NO ACCEPTING FACILITIES AT THIS TIME. 12:00 Reassessment: No changes from previously documented assessment. Patient and/or family bp updated on plan of care and expected duration. Pain level reassessed. TRANSFER IN PROCESS, NO ACCEPTING FACILITIES. 17:36 Reassessment: PT FED DINNER. TRANSFER REMAINS IN PROCESS, NO ACCEPTING FACILITIES AT THIS TIME. 19:20 General: Appears comfortable, Behavior is calm, cooperative. Neuro: Level of ha1 Consciousness is awake, alert, obeys commands, Oriented to person, place, time, situation. Respiratory: Airway is patent Respiratory effort is even, unlabored, Respiratory pattern is regular, symmetrical. GI: No signs and/or symptoms were reported involving the gastrointestinal system. Musculoskeletal: Circulation, motion, and sensation intact. Range of motion: intact in all extremities. 20:20 Reassessment: Patient and/or family updated on plan of care and expected duration. Pain ha1 level reassessed. Pain: Denies pain. Respiratory: Respiratory effort is even, unlabored, Respiratory pattern is regular, symmetrical. 20:20 Neuro: Level of Consciousness is awake, alert, obeys commands. ha1 22:16 Reassessment: eyes closed. Respiratory: Airway is patent Trachea midline Respiratory ha1 effort is even, unlabored, Respiratory pattern is regular, symmetrical. 23:15 Reassessment: eyes closed. Respiratory: Airway is patent Trachea midline Respiratory ha1 effort is even, unlabored, Respiratory pattern is regular, symmetrical. 01/01 01:15 Reassessment: eyes closed. Respiratory: Airway is patent Trachea midline Respiratory ha1 effort is even, unlabored, Respiratory pattern is regular, symmetrical. 02:15 Reassessment: eyes closed. Respiratory: Airway is patent Respiratory effort is even, ha1 unlabored, Respiratory pattern is regular, symmetrical. 03:15 Reassessment: watching TV. Neuro: Level of Consciousness is awake, alert. ha1 05:04 Reassessment: eyes closed. Respiratory: Airway is patent Trachea midline Respiratory ha1 effort is even, unlabored, Respiratory pattern is regular, symmetrical. 06:05 Reassessment: Patient and/or family updated on plan of care and expected duration. Pain ha1 level reassessed. Patient denies pain at this time. Neuro: Level of Consciousness is awake, alert, obeys commands. 07:00 Reassessment: RECD REPORT FROM SWETHA NAIR. 46YO HM P/W SI, H/O PSYCH D/O. PT REMAINS CALM bp AND COOPERATIVE, VOLUNTARY COMMITMENT. TRANSFER ON HOLD PENDING ACCEPTING FACILITY. 12:08 Reassessment: PER ATTENDING PT NO LONGER ON PSYCH WATCH. BELONGINGS RETURNED TO PT, bp SOCIAL WORK C/S FOR DISCHARGE HOUSING. 14:15 Reassessment: CASE MANAGEMENT CONCURS WITH D/C VS TRANSFER. PT TO REMAIN IN ER AND DC bp IN THE AM WITH TRANSPORTATION. 20:42 Reassessment: ambulated to bathroom. vc1 22:45 Reassessment: Patient and/or family updated on plan of care and expected duration. Pain vc1 level reassessed. pt ambulated to bathroom. 23:34 Reassessment: No changes from previously documented assessment. Patient and/or family vc1 updated on plan of care and expected duration. Pain level reassessed. 01/02 03:05 Reassessment: pt sleeping. vc1 05:09 Reassessment: No changes from previously documented assessment. pt sleeping. vc1 07:15 Reassessment: Patient appears in no apparent distress at this time. Patient and/or vg1 family updated on plan of care and expected duration. Pain level reassessed. Patient is alert, oriented x 3, equal unlabored respirations, skin warm/dry/pink. Patient denies pain at this time. Patient states feeling better. Psych: 12/28 06:45 [place] Suicide Severity Screening: In the past month, have you wished you were kd3 or wished you could go to sleep and not wake up? Patient responds "yes." Based off the client's responses additional C-SSRS screening is required. "In the past month, have you actually had any thoughts of killing yourself?" Patient responds "yes." Based off the client's response additional [place] suicide severity screening questions to be further documented on paper forms. "In your lifetime, have you ever done anything, started to do anything, or prepared to do anything to end your life?" Patient responds "yes." Patient reports suicidal intent within 3 past months. Subjective: Patient's mood is sad, hopeless, Delusions are denied, Hallucinations are denied Having thoughts of suicide. Plan for suicide is suicide by copyman. Objective: Patient is cooperative, Speech is normal, Affect is appropriate. Interventions: Removed personal items and placed in bag. Patient placed in hospital gown. Searched person for dangerous items. Urine collected and sent for urine drug test. Belonging list filled out. Safety Checks: Personal items have been removed. Door is open. No visitors are present at this time. Pt denies substance abuse. Commitment: Patient will be a voluntary commitment. Vital Signs: 06:40 BP 109 / 92; Pulse 98; Resp 19; Temp 98(O); Pulse Ox 98% on R/A; kd3 12/29 05:43 BP 117 / 82; Pulse 89; Resp 15; Temp 98.1(O); Pulse Ox 100% on R/A; Pain 0/10; ke1 08:23 BP 135 / 97; Pulse 84; Resp 16; Temp 98.2; Pulse Ox 95% on R/A; Pain 0/10; ll1 20:16 BP 127 / 89; Pulse 84; Resp 18; Temp 98.4; Pulse Ox 99% on R/A; as6 12/30 08:00 BP 122 / 78; Pulse 82; Resp 16; Temp 97.4(O); Pulse Ox 99% on R/A; Pain 0/10; ko1 12:32 BP 151 / 98; Pulse 90; Resp 18; Pulse Ox 94% on R/A; ko1 12/31 05:07 BP 142 / 99; Pulse 65; Resp 16 S; Temp 97.9(O); Pulse Ox 99% on R/A; ha1 08:00 BP 131 / 91; Pulse 86; Resp 16; Temp 98; Pulse Ox 99% ; bp 19:20 BP 138 / 94; Pulse 80; Resp 16 S; Temp 97.9; Pulse Ox 99% on R/A; Pain 0/10; ha1 01/01 06:49 BP 129 / 92; Pulse 84; Resp 16; Temp 98.3; Pulse Ox 98% ; ds4 12:09 BP 125 / 78; Pulse 87; Resp 16; Pulse Ox 99% ; bp 01/02 05:17 BP 137 / 97; Pulse 83; Resp 17; Temp 98.5; Pulse Ox 98% on R/A; vc1 ED Course: 12/28 05:25 Patient arrived in ED. ja2 05:28 Jabier Addison MD is Attending Physician. ginette 06:30 Arm band placed on right wrist. kd3 06:41 Acetaminophen Sent. kd3 06:41 Basic Metabolic Panel Sent. kd3 06:41 ETOH Level Sent. kd3 06:41 Hepatic Function Sent. kd3 06:41 Salicylate Sent. kd3 06:45 Safety Checks: Personal items have been removed. The door is open or patient has been kd3 placed in a hallway bed/chair. Sitter not present at this time due to or because staffing issues. 06:45 Patient has correct armband on for positive identification. Placed in gown. Bed in low kd3 position. Side rails up X2. Noise minimized. Lights dimmed. Warm blanket given. Patient is placed in psych hold. 07:01 Lakeshia Pop, RN is Primary Nurse. kd3 07:13 Triage completed. kd3 07:20 No provider procedures requiring assistance completed. kd3 19:00 Safety Checks: Personal items have been removed. The door is open or patient has been ll3 placed in a hallway bed/chair. There are no family/friend visitors at this time Sitter not present at this time due to or because staffing. 19:00 No apparent distress. Resting quietly. ll3 21:00 No apparent distress. Resting quietly. ll3 23:00 No apparent distress. Resting quietly. ll3 12/29 01:00 Appears to be sleeping. ll3 03:12 Appears to be sleeping. ll3 12/30 19:00 Safety Checks: Personal items have been removed. The door is not opened, nor is patient ha1 placed in a hallway bed/chair. There are no family/friend visitors at this time Sitter not present at this time due to or because Staffing. 12/31 02:08 faxed patient clinical's to all available psych facilities. mw2 05:23 Resting quietly. transfer. Safety Checks: There are no family/friend visitors at this ha1 time Sitter not present at this time Note: close to nurse station. 19:15 No apparent distress. Resting quietly. Safety Checks: Personal items have been removed. ha1 The door is not opened, nor is patient placed in a hallway bed/chair. There are no family/friend visitors at this time Sitter not present at this time due to or because short staff. 01/01 07:08 Report given to KOREY Patrick. ha1 07:18 Primary Nurse role handed off by Lakeshia Pop RN bp 07:18 Tr Navarro, KOREY is Primary Nurse. bp 01/02 00:35 Primary Nurse role handed off by Tr Navarro RN vc1 00:35 Calcote, Ofe, RN is Primary Nurse. vc1 07:08 Attending Physician role handed off by Jabier Addison MD ms3 07:08 Isaias Medrano DO is Attending Physician. ms3 07:11 Adolfo Castrejon MD is Referral Physician. ms3 08:23 Patient did not have IV access during this emergency room visit. vg1 Administered Medications: 12/28 07:01 Drug: NS 0.9% 1000 ml Route: IV; Rate: 1 bolus; Site: left hand; kd3 08:01 Follow up: Response: No adverse reaction; IV Status: Completed infusion; IV Intake: kc6 1000ml 07:01 Drug: Ativan (LORazepam) 1 mg Route: IVP; Site: left hand; kd3 07:23 Follow up: Response: No adverse reaction; Anxiety decreased kd3 12/29 18:50 Drug: ZyPREXA (OLANZapine) 5 mg Route: PO; kr3 20:17 Follow up: Response: No adverse reaction as6 12/31 10:00 Drug: ZyPREXA (OLANZapine) 5 mg Route: PO; bp 10:56 Follow up: Response: No adverse reaction bp 01/01 10:15 Drug: ZyPREXA (OLANZapine) 5 mg Route: PO; bp 12:09 Follow up: Response: No adverse reaction bp 01/02 08:20 Drug: ZyPREXA (OLANZapine) 5 mg Route: PO; vg1 08:20 Follow up: Response: Medication administered at discharge. vg1 Medication: 12/28 07:15 VIS not applicable for this client. kd3 Intake: 08:01 IV: 1000ml; Total: 1000ml. kc6 Outcome: 06:17 ER care complete, transfer ordered by . ginette 01/02 07:12 Discharge ordered by . ms3 08:21 Discharged to Unknown Pt stated is currently calling facilities to stay at including [address]; has an appointment with [facility] on Sunday01/04/22 08:21 Condition: good 08:21 Discharge instructions given to patient, Instructed on discharge instructions, follow up and referral plans. Demonstrated understanding of instructions, follow-up care, medications, Prescriptions given X 1. 08:23 Patient left the ED. vg1 Signatures: Jabier Addison MD MD cha Smirch, Shelby, RN RN Reinaldo Catalan ds4 Kiko Dewitt RN RN jd3 Tr Navarro, RN RN bp Susana, Thada mw2 Dean, Vy, RN RN vg1 Devon Kinney, RN RN ll1 Isaias Medrano DO DO ms3 Andrés, Florence ja2 Derek Jiménez, RN RN as6 Elio Cuba, RN RN ll3 Lakeshia Pop, RN RN kd3 Ofe Oakes, RN RN vc1 Gordy Pérez, RN RN ke1 Swetha Powell, RN RN ha1 Senia Dyer, RN RN kr3 Rina Bernstein, RN RN kc6 Kristy Darling RN RN ko1 Corrections: (The following items were deleted from the chart) 12/28 06:10 06:10 PMHx: diabetes mellitus; [facility] 07:13 06:30 Immunization history: Adult Immunizations up to date, kd3 kd3 12/31 01:48 12/30 19:10 General: room clear of all objects ( cords, medical equipment). ha1 ha1 12/31 03:08 00:42 Reassessment: ha1 ha1 23:20 20:53 Reassessment: Patient and/or family updated on plan of care and expected ha1 duration. Pain level reassessed. ha1 23:20 20:53 Respiratory: Respiratory effort is even, unlabored, ha1 ha1 23:20 20:53 Pain: Denies pain. ha1 ha1 23:20 20:53 Neuro: ha1 ha1
[2022-01-02] MEDS ORDERED: OLANZapine 2.5 MG TAB PO ONE (07:15)
[2022-01-02 08:42] VITALS: BP 137/97; TEMP 98.5; O2SAT 98
== END 2022-01-02 08:23 | disposition home or self-care (01) ==
LOC: ER 05:23
DX: F55.8 Abuse of other non-psychoactive substances (principal); F32.9 Major depressive disorder, single episode, unspecified; F43.10 Post-traumatic stress disorder, unspecified; Z20.822 Contact with and (suspected) exposure to COVID-19
CPT/HCPCS: 36415; 80048; 80076; 80307; 80320; 80329; 81003; 85025; 85610; 85730; 87811; 93005; 96361; 96374; 99284; J7030